=== PATIENT | male | born 1950 | race Caucasian/White ===

== ENCOUNTER → 2018-01-11 | Outpatient (CLI) | payer MEDICARE ==
[2018-01-11 16:12] LABS: INR 2.6 (<1.2); Prothrombin Time 23.8 sec (9.0-12.0)
== END ==
LOC: LABWHC1 14:28
PROVIDERS: ATTEND Internal Medicine Interventional Cardiology
DX: I48.2 Chronic atrial fibrillation (principal); I35.0 Nonrheumatic aortic (valve) stenosis
CPT/HCPCS: 36415; 85610

== ENCOUNTER → 2018-03-30 | Outpatient (CLI) | payer MEDICARE ==
[2018-03-30 13:17] LABS: HCT 43.7 % (39.0-53.0); MCH 30.3 pg (25.0-35.0); MCHC 34.4 g/dL (31.0-37.0); MCV 88.1 fL (80.0-100.0); Mean Platelet Volume 7.3; Platelet Count 205 k/uL (150-450); RBC 4.96 m/uL (4.30-5.90); RDW 13.6 % (11.5-15.5); WBC 7.2 k/uL (3.8-10.6)
[2018-03-30 22:18] LABS: Albumin 3.9 g/dL (3.80-4.90); Albumin/Globulin Ratio 1.3 (1.20-2.10); Anion Gap 10.2 mmol/L (4.00-12.00); Calcium 8.5 mg/dL (8.7-10.3); Carbon Dioxide 25.8 mmol/L (21.6-31.8); LDL Cholesterol,Calculated 92.8 mg/dL (0.0-131.0); Potassium 5.1 mmol/L (3.5-5.5); Total Bilirubin 0.7 mg/dL (0.2-1.2); Total Protein 6.9 g/dL (6.2-8.2); VLDL Calculation 23.2 mg/dL (5.00-40.00)
== END | disposition home or self-care (01) ==
LOC: LABWHC1 12:06
PROVIDERS: ATTEND Internal Medicine Interventional Cardiology
DX: I10 Essential (primary) hypertension (principal); I48.1 Persistent atrial fibrillation
CPT/HCPCS: 36415; 80053; 80061; 83880; 85027

== ENCOUNTER → 2018-06-21 | Outpatient (CLI) | payer MEDICARE ==
[2018-06-21 19:27] LABS: Albumin 4.5 g/dL (3.80-4.90); Albumin/Globulin Ratio 1.41 (1.60-3.17); Anion Gap 10.5 mmol/L (4.00-12.00); Calcium 9.5 mg/dL (8.7-10.3); Carbon Dioxide 28.5 mmol/L (21.6-31.8); Globulin 3.2 g/dL (1.6-3.3); Potassium 4.7 mmol/L (3.5-5.5); Total Bilirubin 1.5 mg/dL (0.2-1.2); Total Protein 7.7 g/dL (6.2-8.2)
== END ==
LOC: LABWHC1 12:27
PROVIDERS: ATTEND Internal Medicine Interventional Cardiology
DX: E78.2 Mixed hyperlipidemia (principal)
CPT/HCPCS: 36415; 80053; 80061

== ENCOUNTER → 2018-11-10 | Outpatient (CLI) | payer MEDICARE ==
[2018-11-10 16:54] LABS: African American GFR (CKD) >90 (>60 ml/min/1.73 sqM); Anion Gap 10 mmol/L; Blood Urea Nitrogen 26 mg/dL (9-20); Calcium 9.7 mg/dL (8.4-10.2); Carbon Dioxide 31 mmol/L (22-30); Chloride 97 mmol/L (98-107); Glucose 109 mg/dL (74-99); Non-African American GFR(CKD) 82 (>60 ml/min/1.73 sqM); Potassium 4.6 mmol/L (3.5-5.1); Sodium 138 mmol/L (137-145)
--- NOTE | 2018-11-10 22:57 | CT ---
EXAMINATION TYPE: CT angio chest DATE OF EXAM: 11/10/2018 COMPARISON: NONE HISTORY: Thoracic aortic aneurysm w/o rupture. CT DLP: 732.50 mGycm. Automated Exposure Control for Dose Reduction was Utilized. CONTRAST: CTA scan of the thorax is performed without and with IV Contrast, patient injected with 100 mL of Iso rodolfo 370, pulmonary embolism protocol. Three-D reconstructed Images are created on an independent work station and reviewed. FINDINGS: LUNGS: The lungs are grossly clear, there is no concerning parenchymal mass or nodule identified. T here is no pleural effusion or pneumothorax seen. The tracheobronchial tree is patent. MEDIASTINUM: There is satisfactory enhancement of the pulmonary artery and its branches, there is no CT evidence for pulmonary embolism. There are no greater than 1 cm hilar or mediastinal lymph nodes. No cardiomegaly or pericardial effusion is seen. Main pulmonary artery is not dilated on axial alton ge 30. Adjacent ascending aorta measures up to 4.1 cm in diameter on same image. No extension into ar ch and descending aorta. Normal three-vessel origin from aortic arch noted. There is moderate coronar y artery calcification which is noted marker for underlying coronary artery disease. OTHER: There is 3.0 cm round hyperdense dependent gallstone in gallbladder axial image 69 partially i kandi. Tiny splenule in splenic hilum. Moderate multilevel anterior and right lateral spurring in the lower thoracic spine. IMPRESSION: There is 4.1 cm ascending aortic aneurysm
== END | disposition home or self-care (01) ==
LOC: RADCTMAIN 15:31
PROVIDERS: ATTEND Internal Medicine Interventional Cardiology
DX: I71.2 Thoracic aortic aneurysm, without rupture (principal); I10 Essential (primary) hypertension
CPT/HCPCS: 80048; 71275; 36415; Q9967

== ENCOUNTER → 2019-05-10 | Outpatient (CLI) | payer MEDICARE ==
[2019-05-10 18:40] LABS: African American GFR (CKD) 100.6 (60.0-200.0); Albumin 4.1 g/dL (3.80-4.90); Albumin/Globulin Ratio 1.37 (1.60-3.17); Anion Gap 7.5 mmol/L (4.00-12.00); BUN/Creat Ratio 23.33 Ratio (12.00-20.00); Calcium 9.4 mg/dL (8.7-10.3); Carbon Dioxide 27.5 mmol/L (21.6-31.8); Chol/HDL Ratio 2.89; Non-African American GFR(CKD) 86.8 (60.0-200.0); Potassium 4.6 mmol/L (3.5-5.5); Total Bilirubin 1.1 mg/dL (0.2-1.2); Total Protein 7.1 g/dL (6.2-8.2)
== END ==
LOC: LABWHC1 12:55
PROVIDERS: ATTEND Internal Medicine Interventional Cardiology
DX: E78.2 Mixed hyperlipidemia (principal)
CPT/HCPCS: 36415; 80053; 80061

== ENCOUNTER → 2019-10-24 | Outpatient (CLI) | payer MEDICARE ==
[2019-10-24 20:24] LABS: African American GFR (CKD) 100.6 (60.0-200.0); Albumin 4.3 g/dL (3.80-4.90); Albumin/Globulin Ratio 1.34 (1.60-3.17); Anion Gap 10.2 mmol/L (4.00-12.00); BUN/Creat Ratio 14.44 Ratio (12.00-20.00); Calcium 9.6 mg/dL (8.7-10.3); Carbon Dioxide 24.8 mmol/L (21.6-31.8); Chol/HDL Ratio 2.58; Globulin 3.2 g/dL (1.6-3.3); Non-African American GFR(CKD) 86.8 (60.0-200.0); Potassium 4.4 mmol/L (3.5-5.5); Total Bilirubin 1.1 mg/dL (0.2-1.2); Total Protein 7.5 g/dL (6.2-8.2)
== END | disposition home or self-care (01) ==
LOC: LABWHC1 12:17
PROVIDERS: ATTEND Internal Medicine Interventional Cardiology
DX: E78.2 Mixed hyperlipidemia (principal)
CPT/HCPCS: 36415; 80053; 80061

== ENCOUNTER → 2022-09-03 | Outpatient (CLI) | payer MEDICARE ==
[2022-09-03 14:59] LABS: HCT 33.8 % (39.6-50.0); HGB 10.2 d/dL (12.0-15.0); MCH 22.3 pg (27.0-32.0); MCHC 30.2 d/dL (32.0-37.0); Mean Platelet Volume 10.2 FL (9.5-12.2); NRBC Per 100 WBC 0 X 10*3/uL (0.00-0.01); Platelet Count 198 X 10*3/uL (140-440); RBC 4.57 X 10*6/uL (4.40-5.60); RDW 18.2 % (11.5-14.5)
[2022-09-03 15:56] LABS: % Iron Saturation 5.26 (15.00-50.00); Ferritin 10.4 ng/mL (22.0-322.0)
[2022-09-03 16:51] LABS: Basophils # (A) 0.05 X 10*3/uL (0.00-0.10); Basophils % (A) 0.9 %; Eosinophils # (A) 0.19 X 10*3/uL (0.04-0.35); Eosinophils % (A) 3.5 %; Lymphocytes # (A) 1.71 X 10*3/uL (0.90-5.00); Lymphocytes % (A) 31.1 %; Monocytes # (A) 0.44 X 10*3/uL (0.20-1.00); Neutrophils % (A) 56.3 %
== END | disposition home or self-care (01) ==
LOC: LABWHC1 08:46
PROVIDERS: ATTEND Nurse Practitioner Family
DX: D64.9 Anemia, unspecified (principal)
CPT/HCPCS: 36415; 82728; 83540; 83550; 85025

== ENCOUNTER 2024-04-02 12:10 | Inpatient (IN) | payer MEDICARE ==
[2024-04-02] MEDS ORDERED: DILTIAZEM 5 MG/ML 5 ML VIAL IVP STA (12:45)
--- NOTE | 2024-04-02 12:57 | ED ---
Extremity Problem HPI - General Chief complaint: Extremity Problem,Nontraumatic Stated complaint: R leg pain Time Seen by Provider: 04/02/24 12:25 Source: patient, RN notes reviewed Mode of arrival: ambulatory Limitations: no limitations - History of Present Illness Initial comments: This is a 74-year-old male with history of heart failure, cardiac ablation and artificial heart valve planning of RLE pain/swelling x 3 days. Patient states symptoms started suddenly without known cause. Denies history of blood clots or current chest pain/difficulty breathing. Endorses regular use of warfarin due to artificial heart valve. States pain improves with extremity elevation worsens when standing. MD Complaint: extremity pain, extremity swelling Onset/Timin -: days(s) Location: right, lower extremity History of Same: No Radiation: none Consistency: constant Improves with: elevation Worsens with: weight bearing, walking, palpation Associated Symptoms: denies other symptoms - Related Data Home Medications Medication Instructions Recorded Confirmed Atorvastatin [Lipitor] 20 mg PO DAILY 04/02/24 04/02/24 Metoprolol Tartrate [Lopressor] 12.5 mg PO BID-W/MEALS 04/02/24 04/02/24 Warfarin [Coumadin] 5 mg PO MO 04/02/24 04/02/24 Warfarin [Coumadin] 7.5 mg PO SUTUWETHFRSA 04/02/24 04/02/24 lisinopriL 40 mg PO DAILY 04/02/24 04/02/24 Allergies Allergy/AdvReac Type Severity Reaction Status Date / Time No Known Allergies Allergy Verified 04/02/24 16:22 Review of Systems ROS Statement: Those systems with pertinent positive or pertinent negative responses have been documented in the HPI. ROS Other: All systems not noted in ROS Statement are negative. Past Medical History Past Medical History: Heart Failure, Hypertension Past Surgical History: Ablation, Cardiac Valve Replacement, Cholecystectomy Additional Past Surgical History / Comment(s): Open heart Smoking Status: Former smoker Past Alcohol Use History: None Reported Past Drug Use History: None Reported General Exam Limitations: no limitations General appearance: alert, in no apparent distress Head exam: Present: atraumatic, normocephalic, normal inspection Eye exam: Present: normal appearance, PERRL, EOMI. Absent: scleral icterus, conjunctival injection, periorbital swelling ENT exam: Present: normal exam, mucous membranes moist Neck exam: Present: normal inspection. Absent: tenderness, meningismus, lymphadenopathy Respiratory exam: Present: normal lung sounds bilaterally. Absent: respiratory distress, wheezes, rales, rhonchi, stridor Cardiovascular Exam: Present: normal rhythm, tachycardia, normal heart sounds. Absent: systolic murmur, diastolic murmur, rubs, gallop, clicks GI/Abdominal exam: Present: soft, normal bowel sounds. Absent: distended, tenderness, guarding, rebound, rigid Extremities exam: Present: full ROM, tenderness, normal capillary refill, calf tenderness (Positive right proximal lateral calf tenderness, warmth with distal pitting edema. Negative Homans' sign otherwise), other (BLE neurovascular and motor function intact, bilateral dorsalis pedis pulse +2, cap refill less than 2 seconds). Absent: pedal edema, joint swelling Back exam: Present: normal inspection Neurological exam: Present: alert, oriented X3, CN II-XII intact Psychiatric exam: Present: normal affect, normal mood Skin exam: Present: warm, dry, intact, normal color. Absent: rash Course Vital Signs 04/02/24 04/02/24 04/02/24 12:14 12:36 13:21 Temperature 97.6 F Pulse Rate 132 H 120 H 131 H Respiratory 20 16 18 Rate Blood Pressure 169/106 186/140 162/111 O2 Sat by Pulse 97 98 98 Oximetry 04/02/24 04/02/24 04/02/24 14:00 14:30 15:00 Temperature Pulse Rate 133 H 122 H 116 H Respiratory 18 18 16 Rate Blood Pressure 133/115 143/99 141/97 O2 Sat by Pulse 97 97 98 Oximetry 04/02/24 04/02/24 04/02/24 15:16 17:03 18:24 Temperature Pulse Rate 98 114 H 133 H Respiratory 16 16 16 Rate Blood Pressure 141/97 145/104 153/107 O2 Sat by Pulse 99 98 97 Oximetry Medical Decision Making - Medical Decision Making Was pt. sent in by a medical professional or institution (, PA, [employer], urgent care, hospital, or care home...) When possible be specific @ -No Did you speak to anyone other than the patient for history (EMS, parent, family, police, friend...)? What history was obtained from this source @ -No Did you review nursing and triage notes (agree or disagree)? Why? @ -I reviewed and agree with nursing and triage notes Were old charts reviewed (outside hosp., previous admission, EMS record, old EKG, old radiological studies, urgent care reports/EKG's, care home records)? Report findings @ -No old charts were reviewed Differential Diagnosis (chest pain, altered mental status, abdominal pain women, abdominal pain men, vaginal bleeding, weakness, fever, dyspnea, syncope, headache, dizziness, GI bleed, back pain, seizure, CVA, palpatations, mental health, musculoskeletal)? @ -DVT, superficial thrombophlebitis, cellulitis, PVD, PAD, muscle spasm EKG interpreted by me (3pts min.). @ -A flutter with RVR and no ST changes or T wave inversion. Ventricular rate 132 bpm, QRS 90 ms, QTc 373 ms. X-rays interpreted by me (1pt min.). @ -CXR shows no acute cardiopulmonary process. CT interpreted by me (1pt min.). @ -None done U/S interpreted by me (1pt. min.). @ -RLE Doppler ultrasound is negative for DVT. What testing was considered but not performed or refused? (CT, X-rays, U/S, labs)? Why? @ -None What meds were considered but not given or refused? Why? @ -None Did you discuss the management of the patient with other professionals (professionals i.e. , PA, [employer], lab, RT, psych nurse, web content & social media manager, electrician aircraft, teacher, veterans service officer, case worker)? Give summary @ -Spoke to Dr. Booker from [facility] regarding patient's HPI. Was smoking cessation discussed for >3mins.? @ -No Was critical care preformed (if so, how long)? @ -Yes, 35 minutes Were there social determinants of health that impacted care today? How? (Homelessness, low income, unemployed, alcoholism, drug addiction, transportation, low edu. Level, literacy, decrease access to med. care, senior living, rehab)? @ -No Was there de-escalation of care discussed even if they declined (Discuss DNR or withdrawal of care, Hospice)? DNR status @ -No What co-morbidities impacted this encounter? (DM, HTN, Smoking, COPD, CAD, Cancer, CVA, ARF, Chemo, Hep., AIDS, mental health diagnosis, sleep apnea, morbid obesity)? @ -Heart failure Was patient admitted / discharged? Hospital course, mention meds given and route, prescriptions, significant lab abnormalities, going to OR and other pertinent info. @ -Lab work shows elevated INR (5.2) and elevated PTT and PTT. Remaining lab work including D-dimer, troponin unremarkable. CXR shows no acute cardiopulmonary process. RLE Doppler ultrasound is negative for DVT. Cardizem ordered for atrial flutter with RVR and patient admitted after speaking to Dr. Booker for abnormal cardiac rhythm. Spoke to both Dr. Michelle and Dr. Samano regarding patient. Undiagnosed new problem with uncertain prognosis? @ -No Drug Therapy requiring intensive monitoring for toxicity (Heparin, Nitro, Insulin, Cardizem)? @ -Cardizem Were any procedures done? @ -No Diagnosis/symptom? @ -A flutter with RVR, RLE pain Acute, or Chronic, or Acute on Chronic? @ -Acute Uncomplicated (without systemic symptoms) or Complicated (systemic symptoms)? @ -Complicated Side effects of treatment? @ -No Exacerbation, Progression, or Severe Exacerbation? @ -No Poses a threat to life or bodily function? How? (Chest pain, USA, ID, pneumonia, PE, COPD, DKA, ARF, appy, cholecystitis, CVA, Diverticulitis, Homicidal, Suicidal, threat to staff... and all critical care pts) @ -A flutter with RVR resulting in potentially fatal arrhythmia - Lab Data Result diagrams: 04/02/24 13:11 04/02/24 13:11 Lab Results 04/02/24 04/02/24 04/02/24 Range/Units 13:11 13:11 13:11 WBC 9.0 (3.8-10.6) k/uL RBC 4.86 (4.30-5.90) m/uL Hgb 14.8 (13.0-17.5) gm/dL Hct 43.9 (39.0-53.0) % MCV 90.2 (80.0-100.0) fL MCH 30.5 (25.0-35.0) pg MCHC 33.8 (31.0-37.0) g/dL RDW 12.6 (11.5-15.5) % Plt Count 267 (150-450) k/uL MPV 7.0 Neutrophils % 77 % Lymphocytes % 15 % Monocytes % 5 % Eosinophils % 2 % Basophils % 1 % Neutrophils # 6.9 (1.3-7.7) k/uL Lymphocytes # 1.3 (1.0-4.8) k/uL Monocytes # 0.4 (0-1.0) k/uL Eosinophils # 0.2 (0-0.7) k/uL Basophils # 0.0 (0-0.2) k/uL PT 51.7 H (10.0-12.5) sec INR 5.2 H* (<1.2) APTT 41.8 H (22.0-30.0) sec D-Dimer 0.37 (<0.60) mg/L FEU Sodium 137 (137-145) mmol/L Potassium 4.1 (3.5-5.1) mmol/L Chloride 103 (98-107) mmol/L Carbon Dioxide 24 (22-30) mmol/L Anion Gap 10 mmol/L BUN 15 (9-20) mg/dL Creatinine 0.66 (0.66-1.25) mg/dL Est GFR (CKD-EPI)AfAm >90 (>60 ml/min/1.73 sqM) Est GFR (CKD-EPI)NonAf >90 (>60 ml/min/1.73 sqM) Glucose 131 H (74-99) mg/dL Calcium 9.3 (8.4-10.2) mg/dL Magnesium 2.0 (1.6-2.3) mg/dL Total Bilirubin 1.5 H (0.2-1.3) mg/dL AST 34 (17-59) U/L ALT 35 (4-49) U/L Alkaline Phosphatase 199 H (38-126) U/L Troponin I (0.000-0.034) ng/mL Total Protein 7.8 (6.3-8.2) g/dL Albumin 4.0 (3.5-5.0) g/dL 04/02/24 Range/Units 13:11 WBC (3.8-10.6) k/uL RBC (4.30-5.90) m/uL Hgb (13.0-17.5) gm/dL Hct (39.0-53.0) % MCV (80.0-100.0) fL MCH (25.0-35.0) pg MCHC (31.0-37.0) g/dL RDW (11.5-15.5) % Plt Count (150-450) k/uL MPV Neutrophils % % Lymphocytes % % Monocytes % % Eosinophils % % Basophils % % Neutrophils # (1.3-7.7) k/uL Lymphocytes # (1.0-4.8) k/uL Monocytes # (0-1.0) k/uL Eosinophils # (0-0.7) k/uL Basophils # (0-0.2) k/uL PT (10.0-12.5) sec INR (<1.2) APTT (22.0-30.0) sec D-Dimer (<0.60) mg/L FEU Sodium (137-145) mmol/L Potassium (3.5-5.1) mmol/L Chloride (98-107) mmol/L Carbon Dioxide (22-30) mmol/L Anion Gap mmol/L BUN (9-20) mg/dL Creatinine (0.66-1.25) mg/dL Est GFR (CKD-EPI)AfAm (>60 ml/min/1.73 sqM) Est GFR (CKD-EPI)NonAf (>60 ml/min/1.73 sqM) Glucose (74-99) mg/dL Calcium (8.4-10.2) mg/dL Magnesium (1.6-2.3) mg/dL Total Bilirubin (0.2-1.3) mg/dL AST (17-59) U/L ALT (4-49) U/L Alkaline Phosphatase (38-126) U/L Troponin I <0.012 (0.000-0.034) ng/mL Total Protein (6.3-8.2) g/dL Albumin (3.5-5.0) g/dL Disposition Clinical Impression: Atrial flutter with rapid ventricular response, Elevated INR, Acute pain of right lower extremity Disposition: ADMITTED IP TO THIS HOSP Condition: Good Is patient prescribed a controlled substance at d/c from ED?: No Time of Disposition: 16:50 Decision Date: 04/02/24 Decision Time: 16:51
[2024-04-02] MEDS: DILTIAZEM DRIP BOLUS FROM BAG 1 MG SOLN IV STA (13:22)
[2024-04-02 13:23] LABS: Basophils % (A) 1 %; Eosinophils # (A) 0.2 k/uL (0-0.7); Eosinophils % (A) 2 %; HCT 43.9 % (39.0-53.0); HGB 14.8 gm/dL (13.0-17.5); Lymphocytes # (A) 1.3 k/uL (1.0-4.8); Lymphocytes % (A) 15 %; MCH 30.5 pg (25.0-35.0); MCHC 33.8 g/dL (31.0-37.0); MCV 90.2 fL (80.0-100.0); Monocytes # (A) 0.4 k/uL (0-1.0); Monocytes % (A) 5 %; Neutrophils # (A) 6.9 k/uL (1.3-7.7); Neutrophils % (A) 77 %; Platelet Count 267 k/uL (150-450); RBC 4.86 m/uL (4.30-5.90); RDW 12.6 % (11.5-15.5)
[2024-04-02] MEDS: DILTIAZEM 125 MG in SODIUM CHLORIDE 0.9% 100 ML IV SCH (13:26)
[2024-04-02 13:32] LABS: ALT 35 U/L (4-49); AST 34 U/L (17-59); African American GFR (CKD) >90 (>60 ml/min/1.73 sqM); Alkaline Phosphatase 199 U/L (38-126); Anion Gap 10 mmol/L; Blood Urea Nitrogen 15 mg/dL (9-20); Calcium 9.3 mg/dL (8.4-10.2); Carbon Dioxide 24 mmol/L (22-30); Chloride 103 mmol/L (98-107); Glucose 131 mg/dL (74-99); Non-African American GFR(CKD) >90 (>60 ml/min/1.73 sqM); Potassium 4.1 mmol/L (3.5-5.1); Sodium 137 mmol/L (137-145); Total Bilirubin 1.5 mg/dL (0.2-1.3); Total Protein 7.8 g/dL (6.3-8.2)
[2024-04-02 13:40] LABS: Partial Thromboplastin Time 41.8 sec (22.0-30.0); Prothrombin Time 51.7 sec (10.0-12.5)
[2024-04-02 13:43] LABS: INR 5.2 (<1.2)
--- NOTE | 2024-04-02 13:49 | US ---
EXAMINATION TYPE: US venous doppler duplex LE RT DATE OF EXAM: 04/02/2024 1:39 PM COMPARISON: NONE CLINICAL INDICATION: Male, 74 years old with history of pain, swelling; pain in right leg, Pain TECHNIQUE: The lower extremity deep venous system is examined utilizing real time linear array sonog dusty with graded compression, color doppler sonography, and spectral doppler. SIDE PERFORMED: Right FINDINGS: VESSELS IMAGED: Common Femoral Vein Deep Femoral Vein Greater Saphenous Vein * Femoral Vein Popliteal Vein Small Saphenous Vein * Proximal Calf Veins (* superficial vessels) Right Leg: Negative for DVT, Color Doppler imaging shows patency of the vessels. Spectral waveforms are within normal limits. IMPRESSION: Right lower extremity ultrasound negative for deep venous thrombosis. [facility], , 04/02/2024 1:47 PM
--- NOTE | 2024-04-02 15:01 | XR ---
EXAMINATION TYPE: XR chest 2V DATE OF EXAM: 04/02/2024 2:40 PM COMPARISON: None CLINICAL INDICATION: Male, 74 years old with history of Chest Pain; TECHNIQUE: XR chest 2V Frontal and lateral views of the chest. FINDINGS: Lungs/Pleura: There is no evidence of pleural effusion, focal consolidation, or pneumothorax. Pulmonary vascularity: Unremarkable. Heart/mediastinum: Cardiomediastinal silhouette is unremarkable. Post aortic valve repair changes. L eft atrial appendage occlusion device is present. Musculoskeletal: No acute osseous pathology. IMPRESSION: No acute cardiopulmonary disease/process. [facility], , 04/02/2024 2:58 PM
[2024-04-02] MEDS ORDERED: NALOXONE 0.4 MG/ML 1 ML VIAL IV PRN (16:51)
[2024-04-02] MEDS ORDERED: WARFARIN 5 MG TAB PO SCH (17:00)
[2024-04-02] MEDS: WARFARIN 0.5 MG TAB PO ONE (17:42)
[2024-04-02] MEDS: METOPROLOL TARTRATE 12.5 MG TAB PO SCH (17:42)
[2024-04-02] MEDS ORDERED: HYDROcodone/APAP 5-325MG 1 EACH TAB PO PRN (18:46)
[2024-04-02] MEDS ORDERED: bisacodyL 5 MG TABLET.DR PO PRN (18:46)
[2024-04-02] MEDS ORDERED: ACETAMINOPHEN TAB 325 MG TAB PO PRN (18:46)
[2024-04-02] MEDS ORDERED: MORPHINE SULFATE 4 MG/ML SYRINGE IVP PRN (18:46)
[2024-04-02] MEDS ORDERED: ONDANSETRON 4 MG/2 ML VIAL IVP PRN (18:46)
--- NOTE | 2024-04-02 18:46 | P.HPIM ---
History of Present Illness H&P Date: 04/02/24 74-year-old patient with history of rheumatic heart disease requiring mitral valvuloplasty and aortic valve replacement, heart failure, HTN, and A-fib who presented to the ER with complaints of right lower extremity pain and swelling for 3 days. On arrival to the ER vital signs were remarkable for pulse of 132 and blood pressure of 169/106. Initial laboratory analysis demonstrated an un remarkable CBC, INR of 5.2, dimer of 0.37, glucose of 131, and bilirubin of 1.5. Lower extremity venous Doppler showed no evidence of DVT in the right lower extremity. Chest x-ray demonstrated no acute cardiopulmonary disease EKG demonstrated atrial fibrillation with rapid ventricular response at 132 bpm he was given a dose of Cardizem and started on a Cardizem infusion. Patient seen and examined at bedside. Reports that on 03/31 he began having right lower extremity pain. It initially felt like a cramping and he thought he had a charley horse. Pain persisted and slowly got worse. He was concern for possible blood clot as he has traveled recently and had been diagnosed with COVID on 03/18. Denies any injury to the leg. He did recently travel to [place] and then to [place]. He denies falling. He reports that it is worse when attempting to ambulate on the leg and better at rest. He also associates it with lower extremity swelling and is better with elevation. He has had COVID and has a persistent cough. He denies any chest pain or shortness of breath. He was aware of some palpitations prior to coming to the ER. He has a history of A-fib. He follows with a contracting analyst out of the [facility] system. He checks his INR once every 2 weeks with a home machine. He states his last checked 2 weeks ago his INR was 2.4. He believes that his aortic valve is bioprostetic. Vital signs reviewed General: nontoxic, no distress, appears at stated age Derm: warm, dry Eyes: EOMI, no lid lag, anicteric sclera, pupils equal round reactive to light ENT: Nose and ears atraumatic Cardiovascular: S2 regular tachycardic, no murmur, 1+ pitting edema right lower extremity Lungs: clear to auscultation bilateral, no rhonchi, no rales, no wheeze, no accessory muscle use Abdominal: soft, nontender to palpation, no guarding Ext: no gross muscle atrophy, no contractures, palpable golf ball size mass right lateral calf which is tender to palpation, no pain with dorsi or plantarflexion of the foot, pain with anterior and posterior drawer of the knee, no pain with varus and valgus distraction of the knee. Neuro: CN II-XII grossly intact, No focal neuro deficits Psych: Alert, oriented, appropriate affect Assessment/Plan: Right lateral calf mass with lower extremity edema -Check CT lower extremity will perform with contrast to assess for possible vascular abnormality given supratherapeutic INR. Prep for possible iodine allergy. He reports a rash associated with the cleaning agent used prior to placing the IV with a prior CT he denies any shortness of breath or chest pain with that -[place] 07/23/2024 every 6 hours as needed for pain, morphine 4 mg IV every 4 hours as needed for pain Atrial flutter/tachycardia with rapid ventricular response -Consult cardiology -Increase Cardizem drip from 5 to 10 mg/h heart rate remains at 130 -Already received metoprolol without improvement in telemetry -Would consider obtaining records from [facility] contracting analyst on Thursday Supratherapeutic Coumadin coagulopathy -Repeat INR in a.m. -Hold Coumadin chronic Hypertension Heart failure Imaging: As Per HPI Data Review: As per HPI The patient is admitted with an anticipated greater than 2 midnight stay for evaluation of leg pain and A fib with RVR not responsive to initial antiarrhythmic dosing. Surrogate decision-maker: CODE STATUS: Full DVT prophylaxis: On Coumadin Anticipated discharge date: 2-[address]: Home This dictation was prepared using [employer] voice recognition software. Though every attempt is made to correct errors during dictation some may still exist. Past Medical History Past Medical History: Heart Failure, Hypertension Past Surgical History: Ablation, Cardiac Valve Replacement, Cholecystectomy Additional Past Surgical History / Comment(s): Open heart Smoking Status: Former smoker Past Alcohol Use History: None Reported Past Drug Use History: None Reported Medications and Allergies Home Medications Medication Instructions Recorded Confirmed Type Atorvastatin [Lipitor] 20 mg PO DAILY 04/02/24 04/02/24 History Metoprolol Tartrate [Lopressor] 12.5 mg PO BID-W/MEALS 04/02/24 04/02/24 History Warfarin [Coumadin] 5 mg PO MO 04/02/24 04/02/24 History Warfarin [Coumadin] 7.5 mg PO SUTUWETHFRSA 04/02/24 04/02/24 History lisinopriL 40 mg PO DAILY 04/02/24 04/02/24 History Allergies Allergy/AdvReac Type Severity Reaction Status Date / Time No Known Allergies Allergy Verified 04/02/24 16:22 Physical Exam Osteopathic Statement: *. No significant issues noted on an osteopathic structural exam other than those noted in the History and Physical/Consult. Vitals: Vital Signs Temp Pulse Resp BP Pulse Ox 04/02/24 18:24 133 H 16 153/107 97 04/02/24 17:03 114 H 16 145/104 98 04/02/24 15:16 98 16 141/97 99 04/02/24 15:00 116 H 16 141/97 98 04/02/24 14:30 122 H 18 143/99 97 04/02/24 14:00 133 H 18 133/115 97 04/02/24 13:21 131 H 18 162/111 98 04/02/24 12:36 120 H 16 186/140 98 04/02/24 12:14 97.6 F 132 H 20 169/106 97 Intake and Output 04/02/24 04/02/24 04/02/24 06:59 14:59 22:59 Intake Total 25 Balance 25 Intake: Intake, IV Titration 25 Amount Diltiazem 125 mg In 25 Sodium Chloride 0.9% 100 ml @ 5 MG/HR 5 mls/hr IV .Q24H [facility] Rx#:[id number] Other: Weight 89.358 kg Results CBC & Chem 7: 04/02/24 13:11 04/02/24 13:11 Labs: Abnormal Lab Results - Last 24 Hours (Table) 04/02/24 04/02/24 Range/Units 13:11 13:11 PT 51.7 H (10.0-12.5) sec INR 5.2 H* (<1.2) APTT 41.8 H (22.0-30.0) sec Glucose 131 H (74-99) mg/dL Total Bilirubin 1.5 H (0.2-1.3) mg/dL Alkaline Phosphatase 199 H (38-126) U/L
[2024-04-02] MEDS: methylPREDNISolone SOD SUCCI 125 MG/2 ML VIAL IV ONE (19:40)
[2024-04-02] MEDS: LACTATED RINGERS 1,000 ML IV SCH (20:50)
[2024-04-03] MEDS: diphenhydrAMINE 50 MG/ML 1 ML VIAL IVP ONE (02:13)
[2024-04-03] MEDS: FAMOTIDINE 20 MG/2 ML VIAL IV ONE (02:14)
[2024-04-03] MEDS: FAMOTIDINE 20 MG/2 ML VIAL IV STA (02:47)
[2024-04-03] MEDS: diphenhydrAMINE 50 MG/ML 1 ML VIAL IVP STA (02:47)
--- NOTE | 2024-04-03 03:50 | CT ---
EXAM: CT Right Lower Extremity With Intravenous Contrast CLINICAL HISTORY: Mass lateral calf TECHNIQUE: Axial computed tomography images of the right lower extremity with intravenous contrast. CTDI is 10.5 mGy and DLP is 526.7 mGy-cm. This CT exam was performed using one or more of the following dose reduction techniques: automated exposure control, adjustment of the mA and/or kV according to patient size, and/or use of iterative reconstruction technique. COMPARISON: No relevant prior studies available. FINDINGS: Bones/joints: No acute osseous abnormality. No abnormal alignment. No cortical destruction or periosteal reaction. Soft tissues: There are two distinct the separate isodense to slightly hyperdense rounded lesions in the lateral posterior compartment musculature, presumed to be the lateral aspect of the soleus muscle. The most lateral lesion measures 2.3 x 2.1 x 3.6 cm. The more medial and slightly inferior lesion, posterior lateral to the proximal fibula measures approximately the 1.2 x 1.6 x 3.4 cm. No loculated intramuscular or subcutaneous fluid collection. No tracking subcutaneous emphysema. Mild subcutaneous edema noted involving the proximal aspect of the anterior lateral and lateral calf. Vasculature: Incidental arterial calcification noted involving the trifurcation calf arteries, most prominent involving the posterior tibial artery. IMPRESSION: There are two distinct the separate isodense to slightly hyperdense rounded lesions in the lateral posterior compartment musculature, presumed to be the lateral aspect of the soleus muscle. The most lateral lesion measures 2.3 x 2.1 x 3.6 cm. The more medial and slightly inferior lesion, posterior lateral to the proximal fibula measures approximately the 1.2 x 1.6 x 3.4 cm. The primary consideration is a intramuscular hematomas. No loculated fluid collection. The muscle bundles are otherwise unremarkable.
[2024-04-03 07:18] LABS: HCT 43.3 % (39.0-53.0); HGB 14.7 gm/dL (13.0-17.5); MCH 30.6 pg (25.0-35.0); MCHC 34.1 g/dL (31.0-37.0); MCV 89.9 fL (80.0-100.0); Mean Platelet Volume 7.6; Platelet Count 277 k/uL (150-450); RBC 4.81 m/uL (4.30-5.90); RDW 12.9 % (11.5-15.5); WBC 7.1 k/uL (3.8-10.6)
[2024-04-03 07:20] LABS: INR 4.4 (<1.2); Prothrombin Time 43.7 sec (10.0-12.5)
[2024-04-03 07:38] LABS: African American GFR (CKD) >90 (>60 ml/min/1.73 sqM); Anion Gap 12 mmol/L; Blood Urea Nitrogen 15 mg/dL (9-20); Calcium 9.3 mg/dL (8.4-10.2); Carbon Dioxide 21 mmol/L (22-30); Chloride 105 mmol/L (98-107); Glucose 174 mg/dL (74-99); Magnesium 1.9 mg/dL (1.6-2.3); Non-African American GFR(CKD) >90 (>60 ml/min/1.73 sqM); Phosphorus 2.6 mg/dL (2.5-4.5); Sodium 138 mmol/L (137-145)
[2024-04-03] MEDS: ATORVASTATIN 20 MG TAB PO SCH (08:01)
[2024-04-03] MEDS: lisinopriL 20 MG TAB PO SCH (08:01)
--- NOTE | 2024-04-03 11:06 | P.CRDCN ---
History of Present Illness Consult date: 04/03/24 Consult reason: atrial fibrillation Chief complaint: Right leg pain and swelling History of present illness: History of present illness: Patient is a pleasant 74-year-old male with significant past medical history of rheumatic heart disease, mitral valvuloplasty, aortic valve replacement in 2020, heart failure, hypertension, atrial fibrillation who presented to the emergency department with complaints of right lower extremity pain and swelling. He does follow with Dr. Amaral cardiology from [place]. Reports that he had been having right leg pain and swelling for 4 days and was concerned about a DVT. Denies any trauma to the leg. He had been traveling home from [place] and also had recent COVID 03/18/2024. He has been compliant with his warfarin and INR is actually supratherapeutic 5.2. Lower extremity ultrasound was negative for DVT. Lower extremity CAT scan shows 2 lesions likely hematoma. EKG shows atrial flutter with RVR 132 bpm. Chest x-ray negative for acute findings. Labs reviewed: Hemoglobin 14.7, INR 5.2, potassium 4.0, creatinine 0.61, TSH normal 0.543, troponin negative. He has been feeling well otherwise. Denies any chest pain or pressure. No shortness of breath, palpitations, dizziness, or syncope. He does not necessarily pay attention to his A-fib. In chart review he did have echocardiogram August 2023 with a EF 55%, mitral and aortic valves stable. No bleeding issues. REVIEW OF SYSTEMS: No fever or chills. No cough or expectoration. No diaphoresis. Patient denies headache, dizziness, blurred vision, double vision. Patient denies any stomach discomfort. No nausea, vomiting. No hematochezia. No hematemesis. Denies any black stools or blood in his stools. Denies dysuria or hematuria. No muscle weakness or numbness. No chest pain or pressure. Reports right calf pain and swelling. PHYSICAL EXAMINATION: This is a 74-year-old male in no apparent distress at the time of my examination. HEENT: Head is atraumatic, normocephalic. Pupils are equal, round. Sclerae a nicteric. Conjunctivae are clear. Mucous membranes of the mouth are moist. Neck is supple. There is no jugular venous distention. No carotid bruit is heard. CHEST EXAMINATION: Lungs are clear to auscultation. No chest wall tenderness is noted on palpation or with deep breathing. HEART EXAMINATION: Heart irregular rate and rhythm. S1, S2 heard. No murmurs, gallops or rub. ABDOMEN: Soft, nontender. Bowel sounds are heard. EXTREMITIES: 2+ peripheral pulses, right lateral calf swelling and tenderness. NEUROLOGIC EXAMINATION: Patient is awake, alert and oriented x3. IMPRESSION AND PLAN: History of rheumatic heart disease History of mitral valvuloplasty History of aortic valve replacement in 2020 Heart failure, likely diastolic chronic Hypertension Atrial fibrillation Atrial flutter with RVR Right lower extremity pain and swelling Supratherapeutic INR 5.2 PLAN: We will check echocardiogram to evaluate heart function and structure, rule out tachycardia induced cardiomyopathy. Recommend better rate control and increase metoprolol to 50 mg twice daily. Wean off Cardizem drip. Consider rhythm control with cardioversion. Will monitor overnight. Further recommendations pending clinical course. I am dictating on behalf of Dr. Leo Torres's history/physical and assessment/plan. Past Medical History Past Medical History: Atrial Fibrillation, Heart Failure, Hypertension History of Any Multi-Drug Resistant Organisms: None Reported Past Surgical History: Ablation, Cardiac Valve Replacement, Cholecystectomy Additional Past Surgical History / Comment(s): Open heart Past Anesthesia/Blood Transfusion Reactions: No Reported Reaction Smoking Status: Former smoker Medications and Allergies Home Medications Medication Instructions Recorded Confirmed Type Atorvastatin [Lipitor] 20 mg PO DAILY 04/02/24 04/02/24 History Metoprolol Tartrate [Lopressor] 12.5 mg PO BID-W/MEALS 04/02/24 04/02/24 History Warfarin [Coumadin] 5 mg PO MO 04/02/24 04/02/24 History Warfarin [Coumadin] 7.5 mg PO SUTUWETHFRSA 04/02/24 04/02/24 History lisinopriL 40 mg PO DAILY 04/02/24 04/02/24 History Allergies Allergy/AdvReac Type Severity Reaction Status Date / Time No Known Allergies Allergy Verified 04/02/24 16:22 Physical Exam Vitals: Vital Signs Temp Pulse Pulse Resp BP BP Pulse Ox 04/03/24 08:00 97.6 F 133 H 17 142/95 97 04/03/24 06:45 98 18 130/90 95 04/03/24 02:00 113 H 18 125/90 95 04/02/24 22:00 86 18 132/93 99 04/02/24 18:24 133 H 16 153/107 97 04/02/24 17:03 114 H 16 145/104 98 04/02/24 15:16 98 16 141/97 99 04/02/24 15:00 116 H 16 141/97 98 04/02/24 14:30 122 H 18 143/99 97 04/02/24 14:00 133 H 18 133/115 97 04/02/24 13:21 131 H 18 162/111 98 04/02/24 12:36 120 H 16 186/140 98 04/02/24 12:14 97.6 F 132 H 20 169/106 97 Intake and Output 04/02/24 04/03/24 04/03/24 22:59 06:59 14:59 Intake Total 25 119.167 Balance 25 119.167 Intake: Intake, IV Titration 25 119.167 Amount Diltiazem 125 mg In 25 119.167 Sodium Chloride 0.9% 100 ml @ 5 MG/HR 5 mls/hr IV .Q24H [facility] Rx#:[id number] Other: Voiding Method Urinal Weight 89.358 kg Results 04/03/24 06:33 04/03/24 06:33 Cardiac Enzymes 04/02/24 04/02/24 Range/Units 13:11 13:11 AST 34 (17-59) U/L Troponin I <0.012 (0.000-0.034) ng/mL Coagulation 04/02/24 04/03/24 Range/Units 13:11 06:33 PT 51.7 H 43.7 H (10.0-12.5) sec APTT 41.8 H (22.0-30.0) sec CBC 04/02/24 04/03/24 Range/Units 13:11 06:33 WBC 9.0 7.1 (3.8-10.6) k/uL RBC 4.86 4.81 (4.30-5.90) m/uL Hgb 14.8 14.7 (13.0-17.5) gm/dL Hct 43.9 43.3 (39.0-53.0) % Plt Count 267 277 (150-450) k/uL Comprehensive Metabolic Panel 04/02/24 04/03/24 Range/Units 13:11 06:33 Sodium 137 138 (137-145) mmol/L Potassium 4.1 4.0 (3.5-5.1) mmol/L Chloride 103 105 (98-107) mmol/L Carbon Dioxide 24 21 L (22-30) mmol/L BUN 15 15 (9-20) mg/dL Creatinine 0.66 0.61 L (0.66-1.25) mg/dL Glucose 131 H 174 H (74-99) mg/dL Calcium 9.3 9.3 (8.4-10.2) mg/dL AST 34 (17-59) U/L ALT 35 (4-49) U/L Alkaline Phosphatase 199 H (38-126) U/L Total Protein 7.8 (6.3-8.2) g/dL Albumin 4.0 (3.5-5.0) g/dL Current Medications Generic Name Dose Route Start Last Admin Trade Name Freq PRN Reason Stop Dose Admin Acetaminophen 650 mg 04/02/24 18:46 Acetaminophen Tab 325 Mg Tab PO Q6HR PRN Mild Pain or Fever > 100.5 Hydrocodone Bitart/Acetaminophen 1 each 04/02/24 18:46 Hydrocodone/Apap 5-325mg 1 Each Tab PO Q4HR PRN Moderate Pain (Scale 4 to 6) Atorvastatin Calcium 20 mg 04/03/24 09:00 04/03/24 08:01 Atorvastatin 20 Mg Tab PO 20 mg DAILY TRINI Administration Bisacodyl 5 mg 04/02/24 18:46 Bisacodyl 5 Mg Tablet.Dr PO DAILY PRN Constipation Diltiazem HCl 125 mg/ Sodium 125 mls @ 5 mls/hr 04/02/24 13:00 04/03/24 10:07 Chloride IV 5 mg/hr .Q24H TRINI 5 mls/hr Infusion 5 MG/HR Lisinopril 40 mg 04/03/24 09:00 04/03/24 08:01 Lisinopril 20 Mg Tab PO 40 mg DAILY TRINI Administration Melatonin 3 mg 04/02/24 18:46 Melatonin 3 Mg Tablet PO HS PRN Insomnia Metoprolol Tartrate 12.5 mg 04/02/24 17:30 04/03/24 08:01 Metoprolol Tartrate 12.5 Mg Tab PO 12.5 mg BID-W/MEALS TRINI Administration Miscellaneous Information 0 each 04/02/24 17:01 Warfarin Per Pharmacy MISCELLANE DIRECTED PRN ANTICOAG Morphine Sulfate 4 mg 04/02/24 18:46 Morphine Sulfate 4 Mg/Ml Syringe IVP Q4HR PRN Severe Pain (Scale 7 to 10) Naloxone HCl 0.2 mg 04/02/24 16:51 Naloxone 0.4 Mg/Ml 1 Ml Vial IV Q2M PRN Opioid Reversal Ondansetron HCl 4 mg 04/02/24 18:46 Ondansetron 4 Mg/2 Ml Vial IVP Q8HR PRN Nausea And Vomiting Warfarin Sodium 0 mg 04/03/24 18:00 Warfarin 0.5 Mg Tab PO 04/03/24 18:01 ONCE@1800 ONE Intake and Output 04/02/24 04/03/24 04/03/24 22:59 06:59 14:59 Intake Total 25 119.167 Balance 25 119.167 Intake: Intake, IV Titration 25 119.167 Amount Diltiazem 125 mg In 25 119.167 Sodium Chloride 0.9% 100 ml @ 5 MG/HR 5 mls/hr IV .Q24H [facility] Rx#:[id number] Other: Voiding Method Urinal Weight 89.358 kg Patient Weight 04/04/24 06:59 Weight 89.358 kg 04/03/24 06:33 04/03/24 06:33
[2024-04-03] MEDS ORDERED: METOPROLOL TARTRATE 12.5 MG TAB PO ONE (11:15)
[2024-04-03] MEDS: METOPROLOL TARTRATE 50 MG TAB PO SCH (11:48)
--- NOTE | 2024-04-03 11:53 | P.PN ---
Subjective Progress Note Date: 04/03/24 No new complaints today. Calf soreness improving per pt. INR improving. HRs improved, downtitrating cardizem gtt. Gen: In NAD, non-toxic HEENT: normocephalic, atraumatic, hearing acuity is intant, mucous membranes moist CVS: perfusing all extremities well, no pitting edema, Respiratory: symmetric chest expansion, no accessory muscle use, GI: soft, NTTP, ND, : no suprapubic tenderness, no CVA tenderness MSK/Derm: no rashes, cyanosis Neuro: CN II-XII intact, no motor weakness, Psych: cooperative, euthymic mood, judgment and insight is intact Hospital course: 74-year-old patient with history of rheumatic heart disease requiring mitral valvuloplasty and aortic valve replacement, heart failure, HTN, and A-fib who presented to the ER with complaints of right lower extremity pain and swelling for 3 days. On arrival to the ER vital signs were remarkable for pulse of 132 and blood pressure of 169/106. Initial laboratory analysis demonstrated an unremarkable CBC, INR of 5.2, dimer of 0.37, glucose of 131, and bilirubin of 1.5. Lower extremity venous Doppler showed no evidence of DVT in the right lower extremity. Chest x-ray demonstrated no acute cardiopulmonary disease EKG demonstrated atrial fibrillation with rapid ventricular response at 132 bpm he was given a dose of Cardizem and started on a Cardizem infusion. Patient seen and examined at bedside. CT of the lower extremity was completed for right calf masses, which are felt to be hematoma. Assessment/Plan: Right lateral calf mass with lower extremity edema -Check CT lower extremity will perform with contrast to assess for possible vascular abnormality given supratherapeutic INR. These are consistent with hematoma. -[place] 07/23/2024 every 6 hours as needed for pain, morphine 4 mg IV every 4 hours as needed for pain Atrial flutter/tachycardia with rapid ventricular response -Consult cardiology -Titrate Cardizem drip for target heart rate under 130 -Increase metoprolol to 50 mg twice daily -Would consider obtaining records from [facility] on Thursday Supratherapeutic Coumadin coagulopathy -Repeat INR in a.m. -Hold Coumadin chronic -Pharmacy assisting with Coumadin management Hypertension Heart failure The patient is admitted with an anticipated greater than 2 midnight stay for evaluation of leg pain and A fib with RVR not responsive to initial antiarrhythmic dosing. Surrogate decision-maker: CODE STATUS: Full DVT prophylaxis: On Coumadin Anticipated discharge date: 2-[address]: Home This dictation was prepared using [employer] voice recognition software. Though every attempt is made to correct errors during dictation some may still exist. Objective - Vital Signs Vital signs: Vital Signs Temp 97.6 F 04/03/24 08:00 Pulse 133 H 04/03/24 08:00 Resp 17 04/03/24 08:00 BP 142/95 04/03/24 08:00 Pulse Ox 97 04/03/24 08:00 FiO2 Intake & Output 04/02/24 04/03/24 04/03/24 18:59 06:59 18:59 Intake Total 25 119.167 Balance 25 119.167 Weight 89.358 kg 89.358 kg Intake: Intake, IV Titration 25 119.167 Amount Diltiazem 125 mg In 25 119.167 Sodium Chloride 0.9% 100 ml @ 5 MG/HR 5 mls/hr IV .Q24H [facility] Rx#:[id number] Other: Voiding Method Urinal - Labs CBC & Chem 7: 04/03/24 06:33 04/03/24 06:33 Labs: Abnormal Lab Results - Last 24 Hours (Table) 04/02/24 04/02/24 04/03/24 Range/Units 13:11 13:11 06:33 PT 51.7 H 43.7 H (10.0-12.5) sec INR 5.2 H* 4.4 H (<1.2) APTT 41.8 H (22.0-30.0) sec Carbon Dioxide (22-30) mmol/L Creatinine (0.66-1.25) mg/dL Glucose 131 H (74-99) mg/dL Total Bilirubin 1.5 H (0.2-1.3) mg/dL Alkaline Phosphatase 199 H (38-126) U/L 04/03/24 Range/Units 06:33 PT (10.0-12.5) sec INR (<1.2) APTT (22.0-30.0) sec Carbon Dioxide 21 L (22-30) mmol/L Creatinine 0.61 L (0.66-1.25) mg/dL Glucose 174 H (74-99) mg/dL Total Bilirubin (0.2-1.3) mg/dL Alkaline Phosphatase (38-126) U/L
[2024-04-03] MEDS: WARFARIN 0.5 MG TAB PO ONE (13:13)
[2024-04-03] MEDS: MELATONIN 3 MG TABLET PO PRN (20:13)
[2024-04-03] MEDS: BENZONATATE 100 MG CAP PO PRN (21:34)
[2024-04-04 05:07] LABS: Basophils % (A) 0 %; Eosinophils % (A) 0 %; HCT 41.1 % (39.0-53.0); HGB 13.8 gm/dL (13.0-17.5); Lymphocytes # (A) 1.1 k/uL (1.0-4.8); Lymphocytes % (A) 5 %; MCH 30.3 pg (25.0-35.0); MCHC 33.5 g/dL (31.0-37.0); MCV 90.6 fL (80.0-100.0); Mean Platelet Volume 7.7; Monocytes # (A) 0.7 k/uL (0-1.0); Monocytes % (A) 3 %; Neutrophils # (A) 18.5 k/uL (1.3-7.7); Neutrophils % (A) 91 %; Platelet Count 272 k/uL (150-450); RBC 4.54 m/uL (4.30-5.90); RDW 13.2 % (11.5-15.5); WBC 20.4 k/uL (3.8-10.6)
[2024-04-04 05:11] LABS: INR 4.8 (<1.2)
[2024-04-04 05:30] LABS: African American GFR (CKD) >90 (>60 ml/min/1.73 sqM); Anion Gap 8 mmol/L; Blood Urea Nitrogen 22 mg/dL (9-20); Calcium 9.3 mg/dL (8.4-10.2); Carbon Dioxide 26 mmol/L (22-30); Chloride 103 mmol/L (98-107); Glucose 164 mg/dL (74-99); Non-African American GFR(CKD) 87 (>60 ml/min/1.73 sqM); Potassium 4.9 mmol/L (3.5-5.1); Sodium 137 mmol/L (137-145)
[2024-04-04 05:31] LABS: Prothrombin Time 47.2 sec (10.0-12.5)
--- NOTE | 2024-04-04 12:10 | P.PN ---
Subjective Progress Note Date: 04/04/24 No new complaints today. Calf soreness improving per pt. INR stable, but remains elevated. HRs improved, off of cardizem gtt. Cleared for d/c by cardiology. Gen: In NAD, non-toxic HEENT: normocephalic, atraumatic, hearing acuity is intant, mucous membranes moist CVS: perfusing all extremities well, no pitting edema, Respiratory: symmetric chest expansion, no accessory muscle use, GI: soft, NTTP, ND, : no suprapubic tenderness, no CVA tenderness MSK/Derm: no rashes, cyanosis Neuro: CN II-XII intact, no motor weakness, Psych: cooperative, euthymic mood, judgment and insight is intact Hospital course: 74-year-old patient with history of rheumatic heart disease requiring mitral valvuloplasty and aortic valve replacement, heart failure, HTN, and A-fib who presented to the ER with complaints of right lower extremity pain and swelling for 3 days. On arrival to the ER vital signs were remarkable for pulse of 132 and blood pressure of 169/106. Initial laboratory analysis demonstrated an unremarkable CBC, INR of 5.2, dimer of 0.37, glucose of 131, and bilirubin of 1.5. Lower extremity venous Doppler showed no evidence of DVT in the right lower extremity. Chest x-ray demonstrated no acute cardiopulmonary disease EKG demonstrated atrial fibrillation with rapid ventricular response at 132 bpm he was given a dose of Cardizem and started on a Cardizem infusion. Patient seen and examined at bedside. CT of the lower extremity was completed for right calf masses, which are felt to be hematoma. Assessment/Plan: Right lateral calf mass with lower extremity edema -Check CT lower extremity will perform with contrast to assess for possible vascular abnormality given supratherapeutic INR. These are consistent with hematoma. -[place] 07/23/2024 every 6 hours as needed for pain, morphine 4 mg IV every 4 hours as needed for pain Atrial flutter/tachycardia with rapid ventricular response -Consult cardiology -Titrate Cardizem drip for target heart rate under 130 -Increase metoprolol to 50 mg twice daily -Would consider obtaining records from [place] [facility] on Thursday Supratherapeutic Coumadin coagulopathy -Monitor INR, awaiting improvement prior to d/c home -Hold Coumadin chronic -Pharmacy assisting with Coumadin management Hypertension Heart failure The patient is admitted with an anticipated greater than 2 midnight stay for evaluation of leg pain and A fib with RVR not responsive to initial antiarrhythmic dosing. Surrogate decision-maker: CODE STATUS: Full DVT prophylaxis: On Coumadin Anticipated discharge date: 2-[address]: Home This dictation was prepared using [email or web address] voice recognition software. Though every attempt is made to correct errors during dictation some may still exist. Objective - Vital Signs Vital signs: Vital Signs Temp 97.7 F 04/04/24 11:14 Pulse 66 04/04/24 11:14 Resp 16 04/04/24 11:14 BP 119/76 04/04/24 11:14 Pulse Ox 98 04/04/24 11:14 FiO2 Intake & Output 04/03/24 04/04/24 04/04/24 18:59 06:59 18:59 Intake Total 601.167 60.167 Balance 601.167 60.167 Weight 89.358 kg 87.5 kg Intake: IV 10 10 Invasive Line 1 10 10 Intake, IV Titration 119.167 50.167 Amount Diltiazem 125 mg In 119.167 50.167 Sodium Chloride 0.9% 100 ml @ 5 MG/HR 5 mls/hr IV .Q24H [facility] Rx#:[id number] Oral 472 Other: Voiding Method Urinal Urinal Toilet Urinal # Voids 3 1 - Labs CBC & Chem 7: 04/04/24 04:41 04/04/24 04:41 Labs: Abnormal Lab Results - Last 24 Hours (Table) 04/04/24 04/04/24 04/04/24 Range/Units 04:41 04:41 04:41 WBC 20.4 H (3.8-10.6) k/uL Neutrophils # 18.5 H (1.3-7.7) k/uL PT 47.2 H (10.0-12.5) sec INR 4.8 H (<1.2) BUN 22 H (9-20) mg/dL Glucose 164 H (74-99) mg/dL
--- NOTE | 2024-04-04 14:53 | P.PN ---
Subjective Progress Note Date: 04/04/24 Consult reason: atrial fibrillation Chief complaint: Right leg pain and swelling History of present illness: Patient is a pleasant 74-year-old male with significant past medical history of rheumatic heart disease, mitral valvuloplasty, aortic valve replacement in 2020, heart failure, hypertension, atrial fibrillation who presented to the emergency department with complaints of right lower extremity pain and swelling. He does follow with Dr. Amaral cardiology from [place]. Reports that he had been having right leg pain and swelling for 4 days and was concerned about a DVT. Denies any trauma to the leg. He had been traveling home from [place] and also had recent COVID 03/18/2024. He has been compliant with his warfarin and INR is actually supratherapeutic 5.2. Lower extremity ultrasound was negative for DVT. Lower extremity CAT scan shows 2 lesions likely hematoma. EKG shows atrial flutter with RVR 132 bpm. Chest x-ray negative for acute findings. Labs reviewed: Hemoglobin 14.7, INR 5.2, potassium 4.0, creatinine 0.61, TSH normal 0.543, troponin negative. He has been feeling well otherwise. Denies any chest pain or pressure. No shortness of breath, palpitations, dizziness, or syncope. He does not necessarily pay attention to his A-fib. In chart review he did have echocardiogram August 2023 with a EF 55%, mitral and aortic valves stable. No bleeding issues. 04/04/2024 Patient seen and examined. Repeat INR 4.8, potassium 4.9, BUN 22 and creatinine 0.82. WBC 20.4 and hemoglobin 13.8. Blood pressure 143/91, heart rate 60, pulse ox 90% on room air. Yesterday, beta-gloria was increased and patient was weaned off Cardizem. He is now in atrial flutter running in the 50s. Patient has been instructed to hold Coumadin until INR is less than 2.5 and he monitors at home. Echocardiogram PHYSICAL EXAMINATION: This is a 74-year-old male in no apparent distress at the time of my examination. HEENT: Head is atraumatic, normocephalic. Pupils are equal, round. Sclerae anicteric. Conjunctivae are clear. Mucous membranes of the mouth are moist. Neck is supple. There is no jugular venous distention. No carotid bruit is heard. CHEST EXAMINATION: Lungs are clear to auscultation. No chest wall tenderness is noted on palpation or with deep breathing. HEART EXAMINATION: Heart irregular rate and rhythm. S1, S2 heard. No murmurs, gallops or rub. ABDOMEN: Soft, nontender. Bowel sounds are heard. EXTREMITIES: 2+ peripheral pulses, right lateral calf swelling and tenderness. NEUROLOGIC EXAMINATION: Patient is awake, alert and oriented x3. IMPRESSION AND PLAN: History of rheumatic heart disease History of mitral valvuloplasty History of aortic valve replacement in 2020 Heart failure, likely diastolic chronic Hypertension Atrial fibrillation Atrial flutter with RVR Right lower extremity pain and swelling Supratherapeutic INR 5.2 PLAN: We will check echocardiogram to evaluate heart function and structure, rule out tachycardia induced cardiomyopathy. Continue Lopressor 50 mg twice daily Continue to monitor INR. Patient has been instructed to hold Coumadin until INR is 2.5 or less. No plan for cardioversion at this point Further recommendations pending clinical course. Nurse practitioner note has been reviewed, I agree with documented findings and plan of care. Patient was seen and examined. Objective - Vital Signs Vital signs: Vital Signs Temp 97.8 F 04/04/24 07:47 Pulse 68 04/04/24 07:47 Resp 16 04/04/24 07:47 BP 143/91 04/04/24 07:47 Pulse Ox 98 04/04/24 07:47 FiO2 Intake & Output 04/03/24 04/04/24 04/04/24 18:59 06:59 18:59 Intake Total 601.167 60.167 Balance 601.167 60.167 Weight 89.358 kg 87.5 kg Intake: IV 10 10 Invasive Line 1 10 10 Intake, IV Titration 119.167 50.167 Amount Diltiazem 125 mg In 119.167 50.167 Sodium Chloride 0.9% 100 ml @ 5 MG/HR 5 mls/hr IV .Q24H [facility] Rx#:[id number] Oral 472 Other: Voiding Method Urinal Urinal Toilet Urinal # Voids 3 1 - Labs CBC & Chem 7: 04/04/24 04:41 04/04/24 04:41 Labs: Abnormal Lab Results - Last 24 Hours (Table) 04/04/24 04/04/24 04/04/24 Range/Units 04:41 04:41 04:41 WBC 20.4 H (3.8-10.6) k/uL Neutrophils # 18.5 H (1.3-7.7) k/uL PT 47.2 H (10.0-12.5) sec INR 4.8 H (<1.2) BUN 22 H (9-20) mg/dL Glucose 164 H (74-99) mg/dL
[2024-04-04] MEDS: WARFARIN 0.5 MG TAB PO ONE (15:37)
[2024-04-05 04:18] VITALS: TEMP 98.1
[2024-04-05 08:03] LABS: Basophils % (A) 0 %; Eosinophils # (A) 0.1 k/uL (0-0.7); Eosinophils % (A) 1 %; HGB 14.6 gm/dL (13.0-17.5); Lymphocytes # (A) 1.9 k/uL (1.0-4.8); Lymphocytes % (A) 18 %; MCH 29.9 pg (25.0-35.0); MCHC 32.5 g/dL (31.0-37.0); MCV 92.2 fL (80.0-100.0); Mean Platelet Volume 7.3; Monocytes # (A) 0.7 k/uL (0-1.0); Monocytes % (A) 7 %; Neutrophils # (A) 7.5 k/uL (1.3-7.7); Neutrophils % (A) 72 %; Platelet Count 237 k/uL (150-450); RBC 4.88 m/uL (4.30-5.90); RDW 12.8 % (11.5-15.5); WBC 10.4 k/uL (3.8-10.6)
[2024-04-05 08:10] LABS: INR 3.6 (<1.2); Prothrombin Time 36.1 sec (10.0-12.5)
[2024-04-05 08:21] VITALS: RESP 16
[2024-04-05 08:57] LABS: Anion Gap 9 mmol/L; Blood Urea Nitrogen 24 mg/dL (9-20); Calcium 8.9 mg/dL (8.4-10.2); Carbon Dioxide 27 mmol/L (22-30); Chloride 102 mmol/L (98-107); Glucose 107 mg/dL (74-99); Magnesium 1.9 mg/dL (1.6-2.3); Potassium 4.6 mmol/L (3.5-5.1); Sodium 138 mmol/L (137-145)
[2024-04-05 08:58] LABS: African American GFR (CKD) >90 (>60 ml/min/1.73 sqM); Non-African American GFR(CKD) >90 (>60 ml/min/1.73 sqM)
--- NOTE | 2024-04-05 11:29 | P.PN ---
Subjective Progress Note Date: 04/05/24 Consult reason: atrial fibrillation Chief complaint: Right leg pain and swelling History of present illness: Patient is a pleasant 74-year-old male with significant past medical history of rheumatic heart disease, mitral valvuloplasty, aortic valve replacement in 2020, heart failure, hypertension, atrial fibrillation who presented to the emergency department with complaints of right lower extremity pain and swelling. He does follow with Dr. Amaral cardiology from [place]. Reports that he had been having right leg pain and swelling for 4 days and was concerned about a DVT. Denies any trauma to the leg. He had been traveling home from [place] and also had recent COVID 03/18/2024. He has been compliant with his warfarin and INR is actually supratherapeutic 5.2. Lower extremity ultrasound was negative for DVT. Lower extremity CAT scan shows 2 lesions likely hematoma. EKG shows atrial flutter with RVR 132 bpm. Chest x-ray negative for acute findings. Labs reviewed: Hemoglobin 14.7, INR 5.2, potassium 4.0, creatinine 0.61, TSH normal 0.543, troponin negative. He has been feeling well otherwise. Denies any chest pain or pressure. No shortness of breath, palpitations, dizziness, or syncope. He does not necessarily pay attention to his A-fib. In chart review he did have echocardiogram August 2023 with a EF 55%, mitral and aortic valves stable. No bleeding issues. 04/04/2024 Patient seen and examined. Repeat INR 4.8, potassium 4.9, BUN 22 and creatinine 0.82. WBC 20.4 and hemoglobin 13.8. Blood pressure 143/91, heart rate 60, pulse ox 90% on room air. Yesterday, beta-gloria was increased and patient was weaned off Cardizem. He is now in atrial flutter running in the 50s. Patient has been instructed to hold Coumadin until INR is less than 2.5 and he monitors at home. Echocardiogram pending 04/05/2024 Patient seen and examined. Blood pressure 161/111, heart rate 60, pulse ox 98% on room air. Repeat blood work reveals hemoglobin 14.6. INR 3.6. Patient is in atrial flutter with controlled rate. PHYSICAL EXAMINATION: This is a 74-year-old male in no apparent distress at the time of my examination. HEENT: Head is atraumatic, normocephalic. Pupils are equal, round. Sclerae anicteric. Conjunctivae are clear. Mucous membranes of the mouth are moist. Neck is supple. There is no jugular venous distention. No carotid bruit is heard. CHEST EXAMINATION: Lungs are clear to auscultation. No chest wall tenderness is noted on palpation or with deep breathing. HEART EXAMINATION: Heart irregular rate and rhythm. S1, S2 heard. No murmurs, gallops or rub. ABDOMEN: Soft, nontender. Bowel sounds are heard. EXTREMITIES: 2+ peripheral pulses, right lateral calf swelling and tenderness. NEUROLOGIC EXAMINATION: Patient is awake, alert and oriented x3. IMPRESSION AND PLAN: History of rheumatic heart disease History of mitral valvuloplasty History of aortic valve replacement in 2020 Heart failure, likely diastolic chronic Hypertension Atrial fibrillation Atrial flutter with RVR Right lower extremity pain and swelling Supratherapeutic INR 5.2 PLAN: Echocardiogram report is pending Add amlodipine 5 mg daily Continue atorvastatin, lisinopril Continue Lopressor 50 mg twice daily Patient has been instructed to hold Coumadin until INR is 2.5 or less. Patient would like to follow-up with Dr. Torres in the office. Patient is cleared for discharge and may follow-up in 1 week. Nurse practitioner note has been reviewed, I agree with documented findings and plan of care. Patient was seen and examined. Objective - Vital Signs Vital signs: Vital Signs Temp 98.1 F 04/05/24 04:17 Pulse 68 04/05/24 04:17 Resp 20 04/05/24 04:17 BP 147/91 04/05/24 04:17 Pulse Ox 98 04/05/24 04:17 FiO2 Intake & Output 04/04/24 04/05/24 04/05/24 18:59 06:59 18:59 Intake Total 118 Balance 118 Weight 87.8 kg Intake: Oral 118 Other: Voiding Method Toilet Toilet Urinal Urinal # Voids 2 1 - Labs CBC & Chem 7: 04/05/24 07:36 04/05/24 07:36
[2024-04-05] MEDS: amLODIPine 5 MG TAB PO SCH (12:03)
[2024-04-05 13:00] VITALS: BP 177/98; PULSE 91
--- NOTE | 2024-04-05 14:30 | P.DS ---
Providers Date of admission: 04/02/24 18:32 Expected date of discharge: 04/05/24 Attending physician: Michelle Booker MD Consults: 04/02/24 16:51 Consult Physician Stat Consulting Provider: Edward Anthony Consult Reason/Comments: A flutter with RVR Do you want consulting provider notified?: Yes Primary care physician: Marielos [facility] Course: Right lateral calf mass with lower extremity edema Atrial flutter/tachycardia with rapid ventricular response Supratherapeutic Coumadin coagulopathy Hypertension Heart failure Gen: In NAD, non-toxic HEENT: normocephalic, atraumatic, hearing acuity is intant, mucous membranes moist CVS: perfusing all extremities well, no pitting edema, Respiratory: symmetric chest expansion, no accessory muscle use, GI: soft, NTTP, ND, : no suprapubic tenderness, no CVA tenderness MSK/Derm: no rashes, cyanosis Neuro: CN II-XII intact, no motor weakness, Psych: cooperative, euthymic mood, judgment and insight is intact Hospital course: 74-year-old patient with history of rheumatic heart disease requiring mitral valvuloplasty and aortic valve replacement, heart failure, HTN, and A-fib who presented to the ER with complaints of right lower extremity pain and swelling for 3 days. On arrival to the ER vital signs were remarkable for pulse of 132 and blood pressure of 169/106. Initial laboratory analysis demonstrated an unremarkable CBC, INR of 5.2, dimer of 0.37, glucose of 131, and bilirubin of 1.5. Lower extremity venous Doppler showed no evidence of DVT in the right lower extremity. Chest x-ray demonstrated no acute cardiopulmonary disease EKG demonstrated atrial fibrillation with rapid ventricular response at 132 bpm he was given a dose of Cardizem and started on a Cardizem infusion. Patient seen and examined at bedside. CT of the lower extremity was completed for right calf masses, which are felt to be hematoma. Patient's hemoglobin remained stable, heart rate controlled with metoprolol twice daily. Patient's INR came down to 3.8. He was discharged home with recommendations to check daily INR and resume Coumadin at a decreased dose of 5 mg daily once his INR was in target between 2-3. He should follow-up with PCP as well as cardiology. Patient was counseled on anxiety as a cause of hypertension, chest pain, he sees a psychologist for this, and I recommended he discuss this with his PCP as he may be a candidate for an SSRI. I spent 38 minutes coordinating this discharge Patient Condition at Discharge: Good Plan - Discharge Summary Discharge Rx Participant: No New Discharge Prescriptions: New Metoprolol Tartrate [Lopressor] 50 mg PO BID #60 tab amLODIPine [Norvasc] 5 mg PO DAILY #30 tab Acetaminophen Tab [Tylenol] 650 mg PO Q6HR PRN tab PRN Reason: Mild Pain Or Fever > 100.5 Continue Atorvastatin [Lipitor] 20 mg PO DAILY lisinopriL 40 mg PO DAILY Changed Warfarin [Coumadin] 5 mg PO DAILY #0 Discontinued Warfarin [Coumadin] 7.5 mg PO SUTUWETHFRSA Metoprolol Tartrate [Lopressor] 12.5 mg PO BID-W/MEALS Discharge Medication List Atorvastatin [Lipitor] 20 mg PO DAILY 04/02/24 [History] lisinopriL 40 mg PO DAILY 04/02/24 [History] Acetaminophen Tab [Tylenol] 650 mg PO Q6HR PRN tab 04/05/24 [Rx] Metoprolol Tartrate [Lopressor] 50 mg PO BID #60 tab 04/05/24 [Rx] Warfarin [Coumadin] 5 mg PO DAILY #0 04/05/24 [Rx] amLODIPine [Norvasc] 5 mg PO DAILY #30 tab 04/05/24 [Rx] Follow up Appointment(s)/Referral(s): Leo Torres DO [STAFF PHYSICIAN] - 1 Week (Spoke to supervisor fish bait processingViola. Office will call you with appointment time.) Marielos Yañez MD [Primary Care Provider] - 04/07/24 11:30 am () Patient Instructions/Handouts: A-fib (Atrial Fibrillation) (DC) Activity/Diet/Wound Care/Special Instructions: Regarding your coumadin: Please continue to check your INR daily until it is between 2-3, then resume coumadin at a reduced dose of 5mg daily. Once your INR remains at goal between 2-3, you can check your INR 3 times per week. Discharge Disposition: HOME SELF-CARE
--- NOTE | 2024-04-05 17:50 | CA ---
Transthoracic Echo Report Name: Kunal Sood Age: 74 Gender: M : 1950 Exam Date: 04/05/2024 08:34 Exam Location: [facility] Ht (in): 70 Wt (lb): 192 Ordering Physician: Tila Clavert Attending/Referring Phys: [id number], Alexiay Protective Services Case Worker Leyla Cervantes, MATHEUS Procedure CPT: Indications: LVF Cardiac Hx: Technical Quality: Contrast 1: Total Dose (mL): Contrast 2: Total Dose (mL): MEASUREMENTS (Male / Female) Normal Values 2D ECHO LV Diastolic Diameter PLAX 4.8 cm 4.2 - 5.9 / 3.9 - 5.3 cm LV Systolic Diameter PLAX 4.6 cm IVS Diastolic Thickness 1.2 cm 0.6 - 1.0 / 0.6 - 0.9 cm LVPW Diastolic Thickness 1.3 cm 0.6 - 1.0 / 0.6 - 0.9 cm LV Relative Wall Thickness 0.5 RV Internal Dim ED PLAX 3.9 cm LVOT Diameter 2.5 cm LA Systolic Diameter LX 4.8 cm 3.0 - 4.0 / 2.7 - 3.8 cm LV Diastolic Volume MOD BP 109.2 cm??? 67 - 155 / 56 - 104 cm??? LV Systolic Volume MOD BP 57.4 cm??? 22 - 58 / 19 - 49 cm??? LV Ejection Fraction MOD BP 47.4 % >= 55 % LV Diastolic Volume MOD 4C 73.1 cm??? LV Systolic Volume MOD 4C 47.0 cm??? LV Ejection Fraction MOD 4C 35.7 % LV Diastolic Length 4C 7.2 cm LV Systolic Length 4C 6.7 cm LV Diastolic Volume MOD 2C 112.3 cm??? LV Systolic Volume MOD 2C 58.1 cm??? LV Ejection Fraction MOD 2C 48.3 % LV Diastolic Length 2C 7.5 cm LV Systolic Length 2C 6.5 cm LA Volume 154.3 cm??? 18 - 58 / 22 - 52 cm??? LA Volume Index 73.8 cm???/m??? 16 - 28 cm???/m??? M-MODE Aortic Root Diameter MM 3.4 cm DOPPLER AV Peak Velocity 185.9 cm/s AV Peak Gradient 13.8 mmHg AV Mean Velocity 124.2 cm/s AV Mean Gradient 7.0 mmHg AV Velocity Time Integral 33.0 cm LVOT Peak Velocity 125.3 cm/s LVOT Peak Gradient 6.3 mmHg LVOT Velocity Time Integral 19.4 cm LVOT Stroke Volume 92.7 cm??? LVOT Stroke Volume Index 45.2 ml/m??? AV Area Cont Eq vti 2.8 cm??? AV Area Cont Eq pk 3.2 cm??? MV Area PHT 2.2 cm??? MR Peak Velocity 512.6 cm/s MR Peak Gradient 105.1 mmHg MV Deceleration Time 358.5 ms TR Peak Velocity 321.2 cm/s TR Peak Gradient 41.3 mmHg Right Ventricular Systolic Press 44.9 mmHg FINDINGS Left Ventricle Left ventricular ejection fraction is estimated at 45-50 %. Left ventricular cavity size normal. Mild global hypokinesis.Mildly increased left ventricular wall thickness. Right Ventricle Mild right ventricular dilatation. Mild to moderate pulmonary hypertension. Right Atrium Mild right atrial dilatation. No right atrial thrombus or mass seen. Left Atrium Moderately increased left atrial diameter. Severely increased left atrial volume. Moderately increased left atrial area. Mitral Valve Mitral valve thickened. Mitral valve repair with mild central mitral regurgitation Aortic Valve Normally functioning bioprosthetic aortic valve without stenosis with a peak velocity of 1.9 m/s, peak gradient 14 mmHg, mean gradient 7 mmHg, and estimated aortic valve area of 3.2 cm???. Aortic regurgitation Tricuspid Valve Structurally normal tricuspid valve. Moderate tricuspid regurgitation. Pulmonic Valve Pulmonic valve not well visualized. Pericardium No pericardial or pleural effusion. Aorta Normal size aortic root and proximal ascending aorta. CONCLUSIONS 1. Mildly impaired left ventricular systolic function 2. Bioprosthetic aortic valve with a mean gradient of 7 mmHg and mild aortic regurgitation, perivalvular. 3. Calcified and thickened mitral valve with evidence of mitral valve repair and mild mitral regurgitation 4. Moderate tricuspid regurgitation with mild to moderate pulmonary hypertension Previewed by: Dr. Eliazar Aguirre MD (Electronically Signed) Final Date: 05 April 2024 17:49
[2024-04-05] MEDS ORDERED: WARFARIN 0.5 MG TAB PO ONE (18:00)
== END 2024-04-05 13:24 | disposition home or self-care (01) | DRG 309 ==
LOC: EC 12:10 → 3SCARD 18:32
PROVIDERS: ADMIT Student in an Organized Health Care Education/Training Program; ATTEND Student in an Organized Health Care Education/Training Program
PROC: 3E033RZ Introduction of Antiarrhythmic into Peripheral Vein, Percutaneous Approach (ICD-10-PCS; principal; 2024-04-02)
DX: I48.91 Unspecified atrial fibrillation (principal); I50.32 Chronic diastolic (congestive) heart failure; I48.92 Unspecified atrial flutter; R79.1 Abnormal coagulation profile; T45.515A Adverse effect of anticoagulants, initial encounter; I11.0 Hypertensive heart disease with heart failure; I09.9 Rheumatic heart disease, unspecified; M79.604 Pain in right leg; M79.81 Nontraumatic hematoma of soft tissue; R05.3 Chronic cough; F41.9 Anxiety disorder, unspecified; Z79.01 Long term (current) use of anticoagulants; Z87.891 Personal history of nicotine dependence; Z86.16 Personal history of COVID-19; Z95.2 Presence of prosthetic heart valve
CPT/HCPCS: 36415; 71046; 80048; 80053; 83735; 84100; 84443; 84484; 85025; 85027; 85379; 85610; 85730; 93005; 93306; 96365; 96366; 96375; 99291

== ENCOUNTER 2024-05-16 08:23 | Emergency (ER) | payer MEDICARE ==
[2024-05-16 09:28] LABS: Basophils % (A) 0 %; Eosinophils # (A) 0.2 k/uL (0-0.7); Eosinophils % (A) 2 %; HCT 45.4 % (39.0-53.0); HGB 15.6 gm/dL (13.0-17.5); Lymphocytes # (A) 0.5 k/uL (1.0-4.8); Lymphocytes % (A) 5 %; MCH 30.5 pg (25.0-35.0); MCHC 34.4 g/dL (31.0-37.0); MCV 88.6 fL (80.0-100.0); Mean Platelet Volume 7.8; Monocytes # (A) 0.2 k/uL (0-1.0); Monocytes % (A) 2 %; Neutrophils # (A) 8.9 k/uL (1.3-7.7); Neutrophils % (A) 90 %; Platelet Count 160 k/uL (150-450); RBC 5.12 m/uL (4.30-5.90); RDW 13.6 % (11.5-15.5); WBC 9.8 k/uL (3.8-10.6)
[2024-05-16] MEDS: SODIUM CHLORIDE 0.9% 1,000 ML IV STA (09:34)
--- NOTE | 2024-05-16 09:38 | XR ---
EXAMINATION TYPE: XR chest 2V DATE OF EXAM: 05/16/2024 9:31 AM COMPARISON: 04/02/2024 CLINICAL INDICATION: Male, 74 years old with history of Chest Pain, TECHNIQUE: XR chest 2V view(s) obtained. FINDINGS: The heart size is normal. The pulmonary vasculature is normal. Small right posterior pleural effusion is present. Sternotomy wires are present from prior cardiac valve surgery. IMPRESSION: 1. Small right pleural effusion [facility] Michele Hernandez, , 05/16/2024 9:36 AM
[2024-05-16 09:43] LABS: INR 2.7 (<1.2); Partial Thromboplastin Time 32.1 sec (22.0-30.0); Prothrombin Time 27.3 sec (10.0-12.5)
[2024-05-16 09:58] LABS: ALT 39 U/L (4-49); AST 37 U/L (17-59); African American GFR (CKD) >90 (>60 ml/min/1.73 sqM); Albumin 4.9 g/dL (3.5-5.0); Alkaline Phosphatase 159 U/L (38-126); Anion Gap 15 mmol/L; Blood Urea Nitrogen 14 mg/dL (9-20); Calcium 9.6 mg/dL (8.4-10.2); Carbon Dioxide 22 mmol/L (22-30); Chloride 99 mmol/L (98-107); Glucose 119 mg/dL (74-99); Magnesium 1.8 mg/dL (1.6-2.3); Non-African American GFR(CKD) 89 (>60 ml/min/1.73 sqM); Potassium 3.9 mmol/L (3.5-5.1); Sodium 136 mmol/L (137-145); Total Bilirubin 3.3 mg/dL (0.2-1.3); Total Protein 8.5 g/dL (6.3-8.2)
[2024-05-16 10:06] LABS: Influenza A Detected (Not Detectd); Influenza B Not Detected (Not Detectd); RSV Not Detected (Not Detectd)
[2024-05-16 11:14] VITALS: RESP 18
--- NOTE | 2024-05-16 11:46 | ED ---
General Adult HPI - General Chief complaint: Chest Pain Stated complaint: cough Time Seen by Provider: 05/16/24 08:49 Source: patient, family, RN notes reviewed, old records reviewed Mode of arrival: ambulatory Limitations: no limitations - History of Present Illness Initial comments: Patient is a 74-year-old male presents emergency department complaining of chest tightness, cough, congestion. Thinks he has a viral syndrome. Denies any jessica chest pain. Denies abdominal pain, nausea, vomiting. Denies diarrhea. Patient had recent COVID and RSV. Patient has a history of A-fib, heart failure, hypertension. Presents for further evaluation at this time. Patient's has similar complaints. - Related Data Home Medications Medication Instructions Recorded Confirmed Atorvastatin [Lipitor] 20 mg PO DAILY 04/02/24 05/16/24 lisinopriL 40 mg PO DAILY 04/02/24 05/16/24 Amiodarone HCl [Pacerone] See Taper PO DIRECTED 05/16/24 05/16/24 Amiodarone [Cordarone] 200 mg PO DIRECTED 05/16/24 05/16/24 Previous Rx's Medication Instructions Recorded Acetaminophen Tab [Tylenol] 650 mg PO Q6HR PRN tab 04/05/24 Metoprolol Tartrate [Lopressor] 50 mg PO BID #60 tab 04/05/24 Warfarin [Coumadin] 5 mg PO DAILY #0 04/05/24 amLODIPine [Norvasc] 5 mg PO DAILY #30 tab 04/05/24 Albuterol Inhaler [Ventolin Hfa 1 - 2 puff INHALATION Q6H PRN #1 05/16/24 Inhaler] each Oseltamivir [Tamiflu] 75 mg PO Q12HR 5 Days #10 cap 05/16/24 predniSONE [Deltasone] 20 mg PO DAILY 5 Days #5 tab 05/16/24 Allergies Allergy/AdvReac Type Severity Reaction Status Date / Time No Known Allergies Allergy Verified 05/16/24 11:07 Review of Systems ROS Statement: Those systems with pertinent positive or pertinent negative responses have been documented in the HPI. Review of Systems: CONST: Denies fever EYES: Denies blurry vision ENT: Endorses nasal congestion C/V: Denies jessica chest pain RESP: Denies shortness of breath GI: Denies abdominal pain : Denies dysuria SKIN: Denies rash. MSK: Denies joint pain. NEURO: Denies headache ROS Other: All systems not noted in ROS Statement are negative. Past Medical History Past Medical History: Atrial Fibrillation, Heart Failure, Hypertension History of Any Multi-Drug Resistant Organisms: None Reported Past Surgical History: Ablation, Cardiac Valve Replacement, Cholecystectomy Additional Past Surgical History / Comment(s): Open heart Past Anesthesia/Blood Transfusion Reactions: No Reported Reaction Past Psychological History: No Psychological Hx Reported Smoking Status: Former smoker General Exam Limitations: no limitations Course Vital Signs 05/16/24 05/16/24 05/16/24 08:27 08:47 08:51 Temperature 97.8 F 98.6 F Pulse Rate 100 96 Respiratory 20 20 20 Rate Blood Pressure 147/91 143/97 O2 Sat by Pulse 99 99 Oximetry 05/16/24 05/16/24 11:00 12:08 Temperature 102.4 F H Pulse Rate 92 95 Respiratory 18 18 Rate Blood Pressure 138/94 124/83 O2 Sat by Pulse 100 97 Oximetry Medical Decision Making - Medical Decision Making Was pt. sent in by a medical professional or institution (DARIO Nolen, CONFERENCE PLANNING MANAGER, urgent care, hospital, or fci...) When possible be specific @ -No Did you speak to anyone other than the patient for history (EMS, parent, family, police, friend...)? What history was obtained from this source @ -No Did you review nursing and triage notes (agree or disagree)? Why? @ -I reviewed and agree with nursing and triage notes Were old charts reviewed (outside hosp., previous admission, EMS record, old EKG, old radiological studies, urgent care reports/EKG's, fci records)? Report findings @ -Old charts reviewed confirming patient's history of atrial fibrillation. Differential Diagnosis (chest pain, altered mental status, abdominal pain women, abdominal pain men, vaginal bleeding, weakness, fever, dyspnea, syncope, headache, dizziness, GI bleed, back pain, seizure, CVA, palpatations, mental health, musculoskeletal)? @ -COVID, flu, RSV, pneumonia. This list is not all inclusive. EKG interpreted by me (3pts min.). @ -As above X-rays interpreted by me (1pt min.). @ -Chest x-ray reveals no evidence of pneumonia. Very small chronic right pleural effusion. CT interpreted by me (1pt min.). @ -None done U/S interpreted by me (1pt. min.). @ -None done What testing was considered but not performed or refused? (CT, X-rays, U/S, labs)? Why? @ -None What meds were considered but not given or refused? Why? @ -None Did you discuss the management of the patient with other professionals (professionals i.e. Dr., PA, CONFERENCE PLANNING MANAGER, lab, RT, psych nurse, social services, agile scrum coach, teacher, light armored vehicle officer, lining caser)? Give summary @ -No Was smoking cessation discussed for >3mins.? @ -No Was critical care preformed (if so, how long)? @ -No Were there social determinants of health that impacted care today? How? (Homelessness, low income, unemployed, alcoholism, drug addiction, transportation, low edu. Level, literacy, decrease access to med. care, residential, rehab)? @ -No Was there de-escalation of care discussed even if they declined (Discuss DNR or withdrawal of care, Hospice)? DNR status @ -No What co-morbidities impacted this encounter? (DM, HTN, Smoking, COPD, CAD, Cancer, CVA, ARF, Chemo, Hep., AIDS, mental health diagnosis, sleep apnea, mor bid obesity)? @ -Atrial fibrillation Was patient admitted / discharged? Hospital course, mention meds given and route, prescriptions, significant lab abnormalities, going to OR and other pertinent info. @ -Patient presents with URI symptoms. Has positive sick contact and his . Presents for further evaluation. Vital signs are within acceptable limits. We will obtain infectious workup, cardiac workup. Patient was in agreement this plan. EKG presents with A-fib, rate controlled. Laboratory studies remarkable for therapeutic INR, undetectable troponin. Patient is influenza A positive. Chest x-ray shows no obvious acute cardiopulmonary process. On reevaluation, patient did this develop a fever. Patient administered Tylenol in addition to the fluids from earlier. He is feeling improved. He will be discharged home at this time. He was in agreement this plan. I will provide the patient with a prescription for prednisone, Tamiflu, albuterol inhaler. I instructed the patient to follow up with their PCP in the next 1-3 days.. I explained that the patient should return to the emergency department if they experience any worsening symptoms. Strict return precautions were discussed with the patient. The patient expressed understanding of these instructions. I answered all questions that the patient had. The patient was discharged home in good condition with their prescriptions and follow up information. Undiagnosed new problem with uncertain prognosis? @ -No Drug Therapy requiring intensive monitoring for toxicity (Heparin, Nitro, Insulin, Cardizem)? @ -No Were any procedures done? @ -No Diagnosis/symptom? @ -Influenza A infection Acute, or Chronic, or Acute on Chronic? @ -Acute Uncomplicated (without systemic symptoms) or Complicated (systemic symptoms)? @ -Uncomplicated Side effects of treatment? @ -No Exacerbation, Progression, or Severe Exacerbation? @ -No Poses a threat to life or bodily function? How? (Chest pain, [place], [place], pneumonia, PE, COPD, DKA, ARF, appy, cholecystitis, CVA, Diverticulitis, Homicidal, Suicidal, threat to staff... and all critical care pts) @ -Unlikely at this time - Lab Data Result diagrams: 05/16/24 08:56 05/16/24 08:56 Lab Results 05/16/24 05/16/24 05/16/24 Range/Units 08:56 08:56 08:56 WBC 9.8 (3.8-10.6) k/uL RBC 5.12 (4.30-5.90) m/uL Hgb 15.6 (13.0-17.5) gm/dL Hct 45.4 (39.0-53.0) % MCV 88.6 (80.0-100.0) fL MCH 30.5 (25.0-35.0) pg MCHC 34.4 (31.0-37.0) g/dL RDW 13.6 (11.5-15.5) % Plt Count 160 (150-450) k/uL MPV 7.8 Neutrophils % 90 % Lymphocytes % 5 % Monocytes % 2 % Eosinophils % 2 % Basophils % 0 % Neutrophils # 8.9 H (1.3-7.7) k/uL Lymphocytes # 0.5 L (1.0-4.8) k/uL Monocytes # 0.2 (0-1.0) k/uL Eosinophils # 0.2 (0-0.7) k/uL Basophils # 0.0 (0-0.2) k/uL PT 27.3 H (10.0-12.5) sec INR 2.7 H (<1.2) APTT 32.1 H (22.0-30.0) sec Sodium 136 L (137-145) mmol/L Potassium 3.9 (3.5-5.1) mmol/L Chloride 99 (98-107) mmol/L Carbon Dioxide 22 (22-30) mmol/L Anion Gap 15 mmol/L BUN 14 (9-20) mg/dL Creatinine 0.79 (0.66-1.25) mg/dL Est GFR (CKD-EPI)AfAm >90 (>60 ml/min/1.73 sqM) Est GFR (CKD-EPI)NonAf 89 (>60 ml/min/1.73 sqM) Glucose 119 H (74-99) mg/dL Calcium 9.6 (8.4-10.2) mg/dL Magnesium 1.8 (1.6-2.3) mg/dL Total Bilirubin 3.3 H (0.2-1.3) mg/dL AST 37 (17-59) U/L ALT 39 (4-49) U/L Alkaline Phosphatase 159 H (38-126) U/L Troponin I (0.000-0.034) ng/mL Total Protein 8.5 H (6.3-8.2) g/dL Albumin 4.9 (3.5-5.0) g/dL Influenza Type A (PCR) (Not Detectd) Influenza Type B (PCR) (Not Detectd) RSV (PCR) (Not Detectd) SARS-CoV-2 (PCR) (Not Detectd) 05/16/24 05/16/24 Range/Units 08:56 08:57 WBC (3.8-10.6) k/uL RBC (4.30-5.90) m/uL Hgb (13.0-17.5) gm/dL Hct (39.0-53.0) % MCV (80.0-100.0) fL MCH (25.0-35.0) pg MCHC (31.0-37.0) g/dL RDW (11.5-15.5) % Plt Count (150-450) k/uL MPV Neutrophils % % Lymphocytes % % Monocytes % % Eosinophils % % Basophils % % Neutrophils # (1.3-7.7) k/uL Lymphocytes # (1.0-4.8) k/uL Monocytes # (0-1.0) k/uL Eosinophils # (0-0.7) k/uL Basophils # (0-0.2) k/uL PT (10.0-12.5) sec INR (<1.2) APTT (22.0-30.0) sec Sodium (137-145) mmol/L Potassium (3.5-5.1) mmol/L Chloride (98-107) mmol/L Carbon Dioxide (22-30) mmol/L Anion Gap mmol/L BUN (9-20) mg/dL Creatinine (0.66-1.25) mg/dL Est GFR (CKD-EPI)AfAm (>60 ml/min/1.73 sqM) Est GFR (CKD-EPI)NonAf (>60 ml/min/1.73 sqM) Glucose (74-99) mg/dL Calcium (8.4-10.2) mg/dL Magnesium (1.6-2.3) mg/dL Total Bilirubin (0.2-1.3) mg/dL AST (17-59) U/L ALT (4-49) U/L Alkaline Phosphatase (38-126) U/L Troponin I <0.012 (0.000-0.034) ng/mL Total Protein (6.3-8.2) g/dL Albumin (3.5-5.0) g/dL Influenza Type A (PCR) Detected A (Not Detectd) Influenza Type B (PCR) Not Detected (Not Detectd) RSV (PCR) Not Detected (Not Detectd) SARS-CoV-2 (PCR) Not Detected (Not Detectd) - EKG Data -: EKG Interpreted by Me EKG Comments: 12-lead Electrocardiogram Interpretation Note EKG was reviewed and interpreted by myself. 12-lead ECG performed at 0838 is interpreted by me as revealing atrial fibrillation, rate controlled at a rate of 92 beats per minute. [place] is normal. QRS duration is 109 ms, QTc is 422 ms.. There were no ST or T wave abnormalities to suggest myocardial ischemia or injury. R wave progression across the precordium was satisfactory. By my inter pretation this EKG is non-diagnostic for acute ischemia. Disposition Clinical Impression: Influenza A Disposition: HOME SELF-CARE Condition: Good Instructions (If sedation given, give patient instructions): Influenza (ED), Chest Wall Pain (ED) Additional Instructions: You have influenza which is likely the cause of all of your symptoms. Complete course of Tamiflu, steroid, as well as use albuterol inhaler as needed. Return to emergency room if any concerning symptoms. Prescriptions: predniSONE [Deltasone] 20 mg PO DAILY 5 Days #5 tab Oseltamivir [Tamiflu] 75 mg PO Q12HR 5 Days #10 cap Albuterol Inhaler [Ventolin Hfa Inhaler] 1 - 2 puff INHALATION Q6H PRN #1 each PRN Reason: dyspnea Is patient prescribed a controlled substance at d/c from ED?: No Referrals: Marielos Yañez MD [Primary Care Provider] - 1-2 days Time of Disposition: 11:45
[2024-05-16] MEDS: OSELTAMIVIR 75 MG CAP PO STA (11:52)
[2024-05-16] MEDS: methylPREDNISolone SOD SUCCI 40 MG/ML 1 ML VIAL IV STA (11:53)
[2024-05-16 12:09] VITALS: BP 124/83; PULSE 95; TEMP 102.4
[2024-05-16] MEDS: ACETAMINOPHEN TAB 500 MG TAB PO STA (12:15)
== END 2024-05-16 12:30 | disposition home or self-care (01) ==
LOC: EC 08:23
DX: J10.1 Influenza due to other identified influenza virus with other respiratory manifestations (principal); I48.91 Unspecified atrial fibrillation; Z87.891 Personal history of nicotine dependence
CPT/HCPCS: 36415; 93005; 80053; 83735; 84484; 85025; 85610; 85730; 87636; 71046; 99285; 96374; 96361; J2919

== ENCOUNTER 2024-06-15 06:09 | Day surgery (SDC) | payer MEDICARE ==
[2024-06-15] MEDS ORDERED: SODIUM CHLORIDE 0.9% 500 ML IV SCH (06:30)
[2024-06-15] MEDS ORDERED: LACTATED RINGERS 1,000 ML IV SCH (06:36)
[2024-06-15] MEDS ORDERED: LIDOCAINE 1% (10MG/ML) FOR IV START INTRADERMA PRN (06:36)
[2024-06-15 06:59] VITALS: TEMP 98.1
[2024-06-15] MEDS: SODIUM CHLORIDE 0.9% 500 ML 500 ML IV ONE (07:05)
[2024-06-15 07:16] LABS: Glucose,Whole Blood 101 mg/dL (70-110)
[2024-06-15] MEDS ORDERED: LIDOCAINE 1% INJ 10MG/ML (20 ML MDV) ONE (07:25)
[2024-06-15] MEDS ORDERED: PROPOFOL 10 MG/ML 20 ML VIAL IV ONE (07:25)
[2024-06-15] MEDS: BENZOCAINE SPRAY 1 EACH MUCOUS MEM STA (07:30)
[2024-06-15 07:47] LABS: INR 2.3 (<1.2); Prothrombin Time 23.2 sec (10.0-12.5)
[2024-06-15 08:18] VITALS: RESP 16
[2024-06-15 08:58] LABS: ALT 30 U/L (4-49); AST 26 U/L (17-59); African American GFR (CKD) >90 (>60 ml/min/1.73 sqM); Albumin 3.8 g/dL (3.5-5.0); Alkaline Phosphatase 144 U/L (38-126); Anion Gap 8 mmol/L; Blood Urea Nitrogen 18 mg/dL (9-20); Calcium 8.8 mg/dL (8.4-10.2); Carbon Dioxide 27 mmol/L (22-30); Chloride 103 mmol/L (98-107); Glucose 115 mg/dL (74-99); Non-African American GFR(CKD) 85 (>60 ml/min/1.73 sqM); Sodium 138 mmol/L (137-145); Total Bilirubin 1.1 mg/dL (0.2-1.3); Total Protein 6.9 g/dL (6.3-8.2)
[2024-06-15 09:53] VITALS: BP 136/84; PULSE 76
--- NOTE | 2024-06-15 12:41 | P.TEE ---
Description of Procedure(s): Procedure performed: Transesophageal Echocardiogram with color flow doppler, pulsed wave doppler and continuous wave doppler, synchronized cardioversion Moderate conscious sedation: Moderate conscious sedation was supplied by anesthesia, see separate report. Complications: none Indications: Atrial fibrillation PROCEDURE: After the risks, benefits and alternatives of the above mentioned procedure was explained in detail with the patient, informed consent was obtained. Patient was brought to the lab in a fasting state. Patient was given sedation by anesthesia, see separate report. The throat was sprayed with Hurricane to anesthetize the throat. A lubricated Omni probe was then introduced into the esophagus and stomach and multiple views were obtained. 2D echo with color flow doppler, pulsed wave doppler and continuous wave doppler was utilized. Agitated saline bubbles were injected to assess for any intra-atrial shunt. The probe was then removed. There was no thrombus noted and therefore patient underwent synchronized cardioversion x 1 with 200J with resultant sinus rhythm. Patient tolerated the procedure well. Patient was transferred to the post procedure area in stable and satisfactory condition. FINDINGS: 1. There is a bioprosthetic aortic valve with normal function and mild aortic insufficiency. 2. There is a bioprosthetic mitral valve with mild regurgitation and mild mitral stenosis with some decreased excursion of the posterior leaflet. 3. Tricuspid valve appears to be normal with moderate to severe tricuspid regurgitations. 4. The interatrial septum is intact. No evidence of PFO. 5. Left atrial appendage has been ligated with no thrombus. 6. Left ventricular EF 40% with global hypokinesis
== END 2024-06-15 10:21 | disposition home or self-care (01) ==
LOC: OR 06:09
PROVIDERS: ATTEND Internal Medicine
DX: I25.10 Atherosclerotic heart disease of native coronary artery without angina pectoris (principal); I48.19 Other persistent atrial fibrillation; I50.32 Chronic diastolic (congestive) heart failure; I11.0 Hypertensive heart disease with heart failure; F41.9 Anxiety disorder, unspecified; F17.210 Nicotine dependence, cigarettes, uncomplicated; Z95.3 Presence of xenogenic heart valve; Z95.2 Presence of prosthetic heart valve; Z79.02 Long term (current) use of antithrombotics/antiplatelets; Z79.899 Other long term (current) drug therapy
CPT/HCPCS: 93312; 93320; 93325; 92960; 80053; 85610; J2003; J2704